=== PATIENT | female | born 1995 | race Caucasian/White ===

== ENCOUNTER 2017-08-21 13:37 | Emergency (ER) | payer OTHER, BC ==
[~2017-08-21] VITALS: Ht 160 cm; Wt 63.6 kg
[2017-08-21 13:38] VITALS: BP 141/86; PULSE 17; RESP 20; TEMP 98.7; O2SAT 100
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
[2017-08-21] MEDS ORDERED: NAPR500T2 PO (16:44)
[2017-08-21] MEDS ORDERED: ROBA500T PO (16:44)
[2017-08-21] MEDS ORDERED: IBUPROFEN 800 MG TAB PO ONE (16:45)
[2017-08-21] MEDS ORDERED: ATOM10 PO (16:46)
[2017-08-21] MEDS ORDERED: LURA20TA PO (16:46)
== END 2017-08-21 16:57 | disposition home or self-care (01) ==
LOC: NEPK 13:37
DX: M25.522 Pain in left elbow (principal); F32.9 Major depressive disorder, single episode, unspecified; F90.9 Attention-deficit hyperactivity disorder, unspecified type; V49.9XXA Car occupant (driver) (passenger) injured in unspecified traffic accident, initial encounter
CPT/HCPCS: 73080; 99283